=== PATIENT | male | born 1945 | race Caucasian/White ===

== ENCOUNTER 2017-12-01 20:07 | Emergency (ER) | payer OTHER, MEDICARE ==
[~2017-12-01] VITALS: Ht 172.7 cm; Wt 100.0 kg
[~2017-12-01 20:07] MED LIST: ALBU18HF2 INH; ATOR10TA70 PO; BECL7.3A INH; CYAN100082 PO; DABI150C PO; DOCU100C40 PO; FENO145T38 PO; FOLI-43 PO; FURO-150 PO; HYDR-3972 PO; MECL-111 PO; METO-539 PO; MULT-1179 PO; OMEG1CAP54 PO; ONDA4TAB6 PO; ONDA8TAB9 PO; PANT40TA39 PO; PHE25R PR; POTA10CA44 PO; PYRI50TA10 PO; ZOLP5TAB8 PO
[2017-12-01 20:54] LABS: BASOPHILS # (AUTO) 0.1 X10'3 (0-0.2); BASOPHILS % (AUTO) 0.7 % (0-1); EOSINOPHILS # (AUTO) 0.2 X10'3 (0-0.9); EOSINOPHILS % (AUTO) 2.2 % (0-6); HEMATOCRIT 49.1 % (42.0-52.0); HEMOGLOBIN 15.9 g/dl (14.0-17.9); LYMPHOCYTES # (AUTO) 1.7 X10'3 (1.1-4.8); MEAN CORPUSCULAR HEMOGLOBIN 27.1 PG (27.0-31.0); MEAN CORPUSCULAR HGB CONC 32.4 % (33.0-36.5); MEAN CORPUSCULAR VOLUME 83.6 FL (78-98); MEAN PLATELET VOLUME 8.8 FL (7.4-10.4); MONOCYTES % (AUTO) 10.7 % (2-12); NEUTROPHILS # (AUTO) 6.1 X10'3 (1.8-7.7); NEUTROPHILS % (AUTO) 67.4 % (42-75); PLATELET COUNT 158 X10'3 (140-440); RED BLOOD COUNT 5.87 X10'6 (4.70-6.10); RED CELL DISTRIBUTION WIDTH 17.6 % (11.5-14.5); WHITE BLOOD COUNT 9.1 X10'3 (4.5-11.0)
[2017-12-01 21:35] LABS: ALANINE AMINOTRANSFERASE 27 U/L (12-78); ALBUMIN 3.5 G/DL (3.4-5.0); ALBUMIN/GLOBULIN RATIO 0.9 (1.1-1.5); ALKALINE PHOSPHATASE 57 IU/L (46-116); ANION GAP 5 (8-16); ASPARTATE AMINO TRANSFERASE 26 U/L (10-37); BILIRUBIN,TOTAL 0.8 MG/DL (0.1-1.0); BLOOD UREA NITROGEN 24 MG/DL (7-18); BUN/CREATININE RATIO 17.1 (5.4-32.0); CALCIUM 9.1 MG/DL (8.5-10.1); CHLORIDE 97 MMOL/L (99-107); GLUCOSE 87 MG/DL (70-104); POTASSIUM 4.1 MMOL/L (3.5-5.1); SODIUM 138 MMOL/L (135-145); TOTAL CARBON DIOXIDE 36.5 MMOL/L (24-32); TOTAL PROTEIN 7.5 G/DL (6.4-8.2); eGFR 50 ML/MIN
[2017-12-01 21:43] LABS: LIPASE 273 U/L (73-393); MAGNESIUM 2.2 MG/DL (1.5-2.4); PHOSPHORUS 2.5 MG/DL (2.3-4.5)
[2017-12-02] VITALS: BP 144/87
== END 2017-12-02 00:08 | disposition home or self-care (01) ==
LOC: ER 20:07
DX: R42 Dizziness and giddiness (principal); I48.91 Unspecified atrial fibrillation; I25.10 Atherosclerotic heart disease of native coronary artery without angina pectoris; I10 Essential (primary) hypertension; J44.9 Chronic obstructive pulmonary disease, unspecified; G89.29 Other chronic pain; Z86.73 Personal history of transient ischemic attack (TIA), and cerebral infarction without residual deficits; Z95.5 Presence of coronary angioplasty implant and graft; Z95.1 Presence of aortocoronary bypass graft; Z98.890 Other specified postprocedural states; Z87.442 Personal history of urinary calculi; Z88.1 Allergy status to other antibiotic agents; Z79.899 Other long term (current) drug therapy
CPT/HCPCS: 36415; 71045; 71250; 80053; 83690; 83735; 83880; 84100; 84145; 84443; 84484; 85025; 87070; 87502; 87503; 99285; J7030

== ENCOUNTER 2018-07-14 10:00 | Outpatient (CLI) | payer OTHER, MEDICARE ==
[~2018-07-14] VITALS: Ht 175.3 cm; Wt 104.8 kg
[2018-07-14] MEDS ORDERED: albuterol 2.5 MG/3 ML nebule NEB PRN (10:45)
== END 2018-07-14 23:59 | disposition home or self-care (01) ==
LOC: RT 10:00
PROVIDERS: ATTEND Internal Medicine Critical Care Medicine
DX: J44.9 Chronic obstructive pulmonary disease, unspecified (principal); I10 Essential (primary) hypertension; F10.10 Alcohol abuse, uncomplicated; Z79.899 Other long term (current) drug therapy; Z87.891 Personal history of nicotine dependence; Z95.2 Presence of prosthetic heart valve
CPT/HCPCS: 94060; 94727; 94729

== ENCOUNTER → 2018-08-14 | Emergency (ER) | payer OTHER, MEDICARE ==
[~2018-08-14] VITALS: Ht 175.3 cm; Wt 109.0 kg
[~2018-08-14] MED LIST changes: +HYDROmorphone 1 mg/ml syringe IV PRN; +HYDROmorphone inj. 0.5 MG/0.5 ML DISP.SYRIN IV PRN; +LORazepam 2 mg/ml vial IV ONE; +ONDA4TAB12 PO; +OXYC-134 PO; +ketorolac trometh. 30mg/ml inj. IV ONE; +normal saline 1000ML IV soln IVB ONE
[2018-08-14 14:30] VITALS: BP 148/84
== END | disposition home or self-care (01) ==
LOC: ER 13:20
DX: G89.29 Other chronic pain (principal); M54.5 Low back pain; M54.6 Pain in thoracic spine; R07.89 Other chest pain; I10 Essential (primary) hypertension; I25.10 Atherosclerotic heart disease of native coronary artery without angina pectoris; J44.9 Chronic obstructive pulmonary disease, unspecified; Z86.73 Personal history of transient ischemic attack (TIA), and cerebral infarction without residual deficits; Z87.442 Personal history of urinary calculi; Z88.8 Allergy status to other drugs, medicaments and biological substances
CPT/HCPCS: 96374; 99284; J1170; J1885; J2060; J7030

== ENCOUNTER 2018-09-13 10:06 | Outpatient (CLI) | payer OTHER, MEDICARE ==
[~2018-09-13 10:06] MED LIST changes: -HYDROmorphone 1 mg/ml syringe IV PRN; -HYDROmorphone inj. 0.5 MG/0.5 ML DISP.SYRIN IV PRN; -LORazepam 2 mg/ml vial IV ONE; -ketorolac trometh. 30mg/ml inj. IV ONE; -normal saline 1000ML IV soln IVB ONE
== END 2018-09-13 23:59 | disposition home or self-care (01) ==
LOC: 64 CT 10:06
PROVIDERS: ATTEND Physician Assistant Surgical
DX: M48.061 Spinal stenosis, lumbar region without neurogenic claudication (principal); M47.896 Other spondylosis, lumbar region; I10 Essential (primary) hypertension; J44.9 Chronic obstructive pulmonary disease, unspecified; Z87.891 Personal history of nicotine dependence
CPT/HCPCS: 72131

== ENCOUNTER 2018-11-26 10:47 | Emergency (ER) | payer OTHER, MEDICARE ==
[~2018-11-26] VITALS: Ht 175.3 cm; Wt 106.0 kg
[2018-11-26 10:49] VITALS: BP 122/79
[2018-11-26] MEDS ORDERED: SULF1TAB49 PO (10:55)
[2018-11-26] MEDS ORDERED: CEPH-572 PO (10:55)
== END 2018-11-26 11:01 | disposition home or self-care (01) ==
LOC: ER 10:48
DX: L03.114 Cellulitis of left upper limb (principal); I10 Essential (primary) hypertension; G89.29 Other chronic pain; J44.9 Chronic obstructive pulmonary disease, unspecified; I48.91 Unspecified atrial fibrillation; I25.10 Atherosclerotic heart disease of native coronary artery without angina pectoris; Z98.62 Peripheral vascular angioplasty status; Z86.73 Personal history of transient ischemic attack (TIA), and cerebral infarction without residual deficits; Z88.8 Allergy status to other drugs, medicaments and biological substances; Z79.899 Other long term (current) drug therapy
CPT/HCPCS: 99283

== ENCOUNTER 2019-04-06 10:13 | Outpatient (CLI) | payer OTHER, MEDICARE ==
[~2019-04-06] VITALS: Ht 175.3 cm; Wt 104.8 kg
[~2019-04-06 10:13] MED LIST changes: -PYRI50TA10 PO; +PYRI50TA13 PO
[2019-04-06] MEDS ORDERED: albuterol 2.5 MG/3 ML nebule NEB ONE (10:55)
== END 2019-04-06 23:59 | disposition home or self-care (01) ==
LOC: RT 10:13
PROVIDERS: ATTEND Internal Medicine Critical Care Medicine
DX: J44.9 Chronic obstructive pulmonary disease, unspecified (principal); F17.210 Nicotine dependence, cigarettes, uncomplicated
CPT/HCPCS: 94060; 94727; 94729; 94760

== ENCOUNTER 2019-06-09 08:15 | Outpatient (CLI) | payer OTHER, MEDICARE ==
[2019-06-09] VITALS (16 sets, daily range): BP systolic 88–127; BP diastolic 46–73
[~2019-06-09] VITALS: Ht 175.3 cm; Wt 104.5 kg
[2019-06-09] MEDS ORDERED: nitroGLYCERIN 0.4mg SUBLingual tab SL PRN (08:55)
[2019-06-09] MEDS ORDERED: regadenoson 0.4mg/5ml syringe IV PRN (08:55)
[2019-06-09] MEDS ORDERED: aminophylline 250mg/10ml inj. IV PRN (08:55)
[2019-06-09] MEDS ORDERED: regadenoson 0.4mg/5ml syringe IV ONE (10:19)
[2019-06-09] MEDS ORDERED: aminophylline inj. 10 ML IV ONE (10:19)
== END 2019-06-09 23:59 | disposition home or self-care (01) ==
LOC: RAD 08:15
PROVIDERS: ATTEND Internal Medicine Interventional Cardiology
DX: I08.8 Other rheumatic multiple valve diseases (principal); I65.23 Occlusion and stenosis of bilateral carotid arteries; I25.810 Atherosclerosis of coronary artery bypass graft(s) without angina pectoris; I48.2 Chronic atrial fibrillation; I25.5 Ischemic cardiomyopathy; E78.5 Hyperlipidemia, unspecified; I70.1 Atherosclerosis of renal artery; I12.9 Hypertensive chronic kidney disease with stage 1 through stage 4 chronic kidney disease, or unspecified chronic kidney disease; N18.3 Chronic kidney disease, stage 3 (moderate); J44.9 Chronic obstructive pulmonary disease, unspecified; G47.33 Obstructive sleep apnea (adult) (pediatric); Z95.5 Presence of coronary angioplasty implant and graft; Z95.0 Presence of cardiac pacemaker; Z79.899 Other long term (current) drug therapy; Z86.73 Personal history of transient ischemic attack (TIA), and cerebral infarction without residual deficits
CPT/HCPCS: 78452; 93017; 93306; 93880; A9500; J0280; J2785

== ENCOUNTER 2020-07-20 15:27 | Emergency (ER) | payer BC, MEDICARE ==
[~2020-07-20] VITALS: Ht 177.8 cm; Wt 95.5 kg
[~2020-07-20 15:27] MED LIST changes: -MECL-111 PO; +MECL-159 PO
[2020-07-20 16:35] LABS: HEMOGLOBIN 8.6 g/dl (14.0-17.9); MEAN CORPUSCULAR VOLUME 83.2 FL (78-98); WHITE BLOOD COUNT 5.3 X10'3 (4.5-11.0)
[2020-07-20 16:37] LABS: HEMATOCRIT 26.1 % (42.0-52.0); MEAN CORPUSCULAR HEMOGLOBIN 27.4 PG (27.0-31.0); MEAN PLATELET VOLUME 10.9 FL (7.4-10.4); RED BLOOD COUNT 3.13 X10'6 (4.70-6.10); RED CELL DISTRIBUTION WIDTH 28.4 % (11.5-14.5)
[2020-07-20 16:48] LABS: PARTIAL THROMBOPLASTIN TIME 39 SECONDS (22-32)
[2020-07-20 16:49] LABS: PLATELET COUNT 23 X10'3 (140-440)
[2020-07-20 16:50] LABS: ALANINE AMINOTRANSFERASE 14 U/L (12-78); ALBUMIN/GLOBULIN RATIO 1.2 (1.1-1.5); ALKALINE PHOSPHATASE 63 IU/L (46-116); ANION GAP 9 (8-16); ASPARTATE AMINO TRANSFERASE 16 U/L (10-37); BILIRUBIN,TOTAL 1.2 MG/DL (0.1-1.0); BLOOD UREA NITROGEN 28 MG/DL (7-18); BUN/CREATININE RATIO 13.7 (5.4-32.0); CALCIUM 8.6 MG/DL (8.5-10.1); CHLORIDE 99 MMOL/L (99-107); CREATININE 2.05 MG/DL (0.60-1.10); GLUCOSE 139 MG/DL (70-104); POTASSIUM 4.2 MMOL/L (3.5-5.1); SODIUM 137 MMOL/L (135-145); TOTAL CARBON DIOXIDE 28.6 MMOL/L (24-32); TOTAL PROTEIN 7.4 G/DL (6.4-8.2); eGFR 32 ML/MIN
[2020-07-20 16:54] LABS: ANISOCYTOSIS 3+; NUCLEATED RED BLOOD CELLS 2 /100WBC (0-0); PLATELET ESTIMATE DECREASED; TOTAL CELLS COUNTED 100
[2020-07-20 16:55] LABS: LARGE PLATELETS FEW; POLYCHROMASIA 1+
[2020-07-20 16:56] LABS: ACANTHOCYTES 2+; ELLIPTOCYTES 1+; SCHISTOCYTES 1+
[2020-07-20 17:31] LABS: C-REACTIVE PROTEIN 1.82 MG/DL (0.0-0.5); LACTATE DEHYDROGENASE 453 U/L (85-227)
[2020-07-20 18:30] LABS: CLARITY,URINE CLEAR (Clear); COLOR,URINE YELLOW (Yellow); GLUCOSE, URINE NEGATIVE (Neg); KETONES,URINE NEGATIVE (Neg); LEUKOCYTE ESTERASE ,URINE NEGATIVE (Neg); NITRITES, URINE NEGATIVE (Neg); OCCULT BLOOD,URINE NEGATIVE (Neg); PROTEIN,URINE NEGATIVE (Neg); UROBILINOGEN,URINE 0.2 E.U/dL (0.2-1.0)
[2020-07-20 18:37] LABS: UA COLLECTION TYPE URINAL
[2020-07-20 20:23] VITALS: BP 110/58
== END 2020-07-20 22:53 | disposition home or self-care (01) ==
LOC: ER 15:27
DX: D69.6 Thrombocytopenia, unspecified (principal); I48.91 Unspecified atrial fibrillation; I25.10 Atherosclerotic heart disease of native coronary artery without angina pectoris; I10 Essential (primary) hypertension; J44.9 Chronic obstructive pulmonary disease, unspecified; G89.29 Other chronic pain; Z86.73 Personal history of transient ischemic attack (TIA), and cerebral infarction without residual deficits; Z87.442 Personal history of urinary calculi; Z98.890 Other specified postprocedural states; Z95.0 Presence of cardiac pacemaker; Z88.8 Allergy status to other drugs, medicaments and biological substances; Z79.899 Other long term (current) drug therapy
CPT/HCPCS: 36415; 80053; 81003; 83615; 85007; 85025; 85384; 85610; 85651; 85730; 86140; 99283

== ENCOUNTER 2020-08-01 08:32 | Outpatient (CLI) | payer BC, MEDICARE | END 2020-08-01 23:59 | disposition home or self-care (01) | LOC: RAD 08:32 | PROVIDERS: ATTEND Internal Medicine Hematology & Oncology | DX: R16.0 Hepatomegaly, not elsewhere classified (principal); K80.80 Other cholelithiasis without obstruction | CPT/HCPCS: 76700 ==

== ENCOUNTER 2020-08-15 12:03 | Emergency (ER) | payer BC, MEDICARE ==
[~2020-08-15] VITALS: Ht 175.3 cm; Wt 91.8 kg
[2020-08-15] MEDS ORDERED: normal saline 1000ML IV soln IVB ONE (12:20)
[2020-08-15] MEDS ORDERED: HYDROmorphone inj. 0.5 MG/0.5 ML DISP.SYRIN IV ONE (12:20)
[2020-08-15] MEDS ORDERED: ondansetron/PF 4mg/2ml inj IV ONE (12:20)
[2020-08-15 12:37] LABS: HEMOGLOBIN 8.1 g/dl (14.0-17.9); MEAN PLATELET VOLUME 10.9 FL (7.4-10.4); RED BLOOD COUNT 2.97 X10'6 (4.70-6.10); WHITE BLOOD COUNT 4.1 X10'3 (4.5-11.0)
[2020-08-15 12:38] LABS: HEMATOCRIT 24.3 % (42.0-52.0); MEAN CORPUSCULAR HEMOGLOBIN 27.1 PG (27.0-31.0); MEAN CORPUSCULAR HGB CONC 33.2 g/dL (33.0-36.5); MEAN CORPUSCULAR VOLUME 81.8 FL (78-98); RED CELL DISTRIBUTION WIDTH 29.7 % (11.5-14.5)
[2020-08-15 12:51] LABS: ALANINE AMINOTRANSFERASE 14 U/L (12-78); ALBUMIN/GLOBULIN RATIO 1.2 (1.1-1.5); ALKALINE PHOSPHATASE 43 IU/L (46-116); ANION GAP 8 (8-16); ASPARTATE AMINO TRANSFERASE 22 U/L (10-37); BILIRUBIN,TOTAL 1.4 MG/DL (0.1-1.0); BLOOD UREA NITROGEN 44 MG/DL (7-18); BUN/CREATININE RATIO 18.8 (5.4-32.0); CALCIUM 8.8 MG/DL (8.5-10.1); CHLORIDE 97 MMOL/L (99-107); CREATININE 2.34 MG/DL (0.60-1.10); GLUCOSE 116 MG/DL (70-104); SODIUM 133 MMOL/L (135-145); TOTAL PROTEIN 7.4 G/DL (6.4-8.2); eGFR 27 ML/MIN
[2020-08-15 13:03] LABS: PLATELET COUNT 42 X10'3 (140-440)
[2020-08-15 13:14] LABS: NUCLEATED RED BLOOD CELLS 5 /100WBC (0-0); TOTAL CELLS COUNTED 100
[2020-08-15 13:15] LABS: ANISOCYTOSIS 3+; PLATELET ESTIMATE DECREASED
[2020-08-15 13:16] LABS: ACANTHOCYTES FEW; ELLIPTOCYTES 1+; LARGE PLATELETS FEW; POLYCHROMASIA 1+; SCHISTOCYTES 1+
[2020-08-15] MEDS ORDERED: oxyCODONE/APAP 10/325mg tablet PO ONE (14:35)
[2020-08-15 14:49] VITALS: BP 110/52
== END 2020-08-15 14:52 | disposition home or self-care (01) ==
LOC: ER 12:04
DX: G89.18 Other acute postprocedural pain (principal); D69.6 Thrombocytopenia, unspecified; E86.0 Dehydration; R06.02 Shortness of breath; G89.29 Other chronic pain; I48.91 Unspecified atrial fibrillation; I25.10 Atherosclerotic heart disease of native coronary artery without angina pectoris; I12.9 Hypertensive chronic kidney disease with stage 1 through stage 4 chronic kidney disease, or unspecified chronic kidney disease; N18.3 Chronic kidney disease, stage 3 (moderate); J44.9 Chronic obstructive pulmonary disease, unspecified; Z87.442 Personal history of urinary calculi; Z98.890 Other specified postprocedural states; Z98.61 Coronary angioplasty status; Z95.0 Presence of cardiac pacemaker; Z95.1 Presence of aortocoronary bypass graft; Z86.73 Personal history of transient ischemic attack (TIA), and cerebral infarction without residual deficits; Z88.8 Allergy status to other drugs, medicaments and biological substances; Z79.899 Other long term (current) drug therapy
CPT/HCPCS: 36415; 71250; 74176; 80053; 85007; 85025; 85651; 96361; 96374; 96375; 99284; J1170; J2405; J7030

== ENCOUNTER → 2020-08-24 | Outpatient (CLI) | payer BC, MEDICARE | END | disposition home or self-care (01) | LOC: CARD DIAG 09:38 | PROVIDERS: ATTEND Internal Medicine Interventional Cardiology | DX: I08.3 Combined rheumatic disorders of mitral, aortic and tricuspid valves (principal); E78.5 Hyperlipidemia, unspecified | CPT/HCPCS: 93306 ==

== ENCOUNTER 2020-09-06 10:03 | Day surgery (SDC) | payer BC, MEDICARE ==
[2020-09-06] VITALS (19 sets, daily range): BP systolic 11–123; BP diastolic 47–75
[~2020-09-06 10:03] MED LIST changes: +Allopurinol; -DABI150C PO; -DOCU100C40 PO; -FOLI-43 PO; +FOLI0.4T2 PO; -HYDR-3972 PO; +LISI1TAB32 PO; -MECL-159 PO; -MULT-1179 PO; -OMEG1CAP54 PO; -ONDA4TAB12 PO; -ONDA4TAB6 PO; -ONDA8TAB9 PO; -OXYC-134 PO; -PHE25R PR
[2020-09-06] MEDS ORDERED: acetaminophen 325mg tablet PO ONE (10:30)
[2020-09-06] MEDS ORDERED: diphenhydrAMINE 25mg capsule PO ONE (10:30)
[2020-09-06] MEDS ORDERED: dexamethasone sod phosphate 4mg/ml inj. IV ONE (10:40)
[2020-09-06] MEDS ORDERED: normal saline 1000ml 1,000 ML IV SCH (10:45)
[2020-09-07] MEDS ORDERED: dexamethasone sod phosphate 4mg/ml inj. IV SCH (08:00)
== END 2020-09-06 17:55 | disposition home or self-care (01) ==
LOC: SSTAY O 10:03
PROVIDERS: ATTEND Internal Medicine Hematology & Oncology
DX: D64.9 Anemia, unspecified (principal); D64.2 Secondary sideroblastic anemia due to drugs and toxins
CPT/HCPCS: 36415; 36430; 86885; 86900; 86901; 86920; J1100; J7030; P9016; Q0163

== ENCOUNTER 2020-09-17 10:50 | Inpatient (IN) | payer BC, MEDICARE ==
[~2020-09-17] VITALS: Ht 175.3 cm; Wt 89.5 kg
[~2020-09-17 10:50] MED LIST changes: -METO-539 PO
--- NOTE | 2020-09-17 11:01 | NUR ---
Dr. Dow called to bedside on patient's arrival and is updated on patient's situation.
[2020-09-17 11:59] LABS: D-DIMER 0.45 MG/L FEU (0-0.50); PARTIAL THROMBOPLASTIN TIME 31 SECONDS (22-32)
[2020-09-17 12:13] LABS: CLARITY,URINE CLEAR (Clear); GLUCOSE, URINE NEGATIVE (Neg); KETONES,URINE NEGATIVE (Neg); LEUKOCYTE ESTERASE ,URINE NEGATIVE (Neg); NITRITES, URINE NEGATIVE (Neg); OCCULT BLOOD,URINE NEGATIVE (Neg); PROTEIN,URINE NEGATIVE (Neg)
[2020-09-17 12:16] LABS: COLOR,URINE DARK YELLOW (Yellow); UA COLLECTION TYPE VOIDED
[2020-09-17 12:17] LABS: ALANINE AMINOTRANSFERASE 14 U/L (12-78); ALBUMIN 3.2 G/DL (3.4-5.0); ALBUMIN/GLOBULIN RATIO 1.1 (1.1-1.5); ALKALINE PHOSPHATASE 46 IU/L (46-116); ANION GAP 4 (8-16); ASPARTATE AMINO TRANSFERASE 17 U/L (10-37); BILIRUBIN,TOTAL 1.4 MG/DL (0.1-1.0); BLOOD UREA NITROGEN 34 MG/DL (7-18); BUN/CREATININE RATIO 25.8 (5.4-32.0); C-REACTIVE PROTEIN 7.14 MG/DL (0.0-0.5); CALCIUM 8.3 MG/DL (8.5-10.1); CHLORIDE 98 MMOL/L (99-107); CREATININE 1.32 MG/DL (0.60-1.10); GLUCOSE 112 MG/DL (70-104); POTASSIUM 4.2 MMOL/L (3.5-5.1); SODIUM 134 MMOL/L (135-145); TOTAL CARBON DIOXIDE 31.9 MMOL/L (24-32); TOTAL PROTEIN 6.1 G/DL (6.4-8.2); eGFR 53 ML/MIN
--- NOTE | 2020-09-17 12:33 | NUR ---
Patient is resting comfortably with his Hailee at bedside.
[2020-09-17 12:40] LABS: BASOPHILS % (AUTO) 0 % (0-1); HEMOGLOBIN 8.4 g/dl (14.0-17.9); MONOCYTES # (AUTO) 0.2 X10'3 (0-0.9); NEUTROPHILS # (AUTO) 12.6 X10'3 (1.8-7.7)
[2020-09-17 12:42] LABS: EOSINOPHILS % (AUTO) 0.1 % (0-6); HEMATOCRIT 25.8 % (42.0-52.0); LYMPHOCYTES # (AUTO) 0.6 X10'3 (1.1-4.8); LYMPHOCYTES % (AUTO) 4.3 % (21-51); MEAN CORPUSCULAR HEMOGLOBIN 27.8 PG (27.0-31.0); MEAN CORPUSCULAR HGB CONC 32.5 g/dL (33.0-36.5); MEAN CORPUSCULAR VOLUME 85.5 FL (78-98); MEAN PLATELET VOLUME 8.2 FL (7.4-10.4); MONOCYTES % (AUTO) 1.5 % (2-12); NEUTROPHILS % (AUTO) 94.1 % (42-75); RED BLOOD COUNT 3.01 X10'6 (4.70-6.10); RED CELL DISTRIBUTION WIDTH 22.8 % (11.5-14.5); WHITE BLOOD COUNT 13.4 X10'3 (4.5-11.0)
--- NOTE | 2020-09-17 13:10 | NUR ---
MRI screening form completed and faxed.
[2020-09-17 13:42] LABS: PLATELET COUNT 50 X10'3 (140-440)
[2020-09-17 14:03] LABS: NUCLEATED RED BLOOD CELLS 1 /100WBC (0-0); TOTAL CELLS COUNTED 100
[2020-09-17 14:05] LABS: ANISOCYTOSIS 3+; PLATELET ESTIMATE DECREASED
[2020-09-17 14:06] LABS: POIKILOCYTOSIS 2+
[2020-09-17 14:07] LABS: HYPOCHROMASIA 1+
[2020-09-17 14:10] LABS: ACANTHOCYTES 1+; BURR CELLS FEW; SCHISTOCYTES 3+; SPHEROCYTES 1+
[2020-09-17 14:11] LABS: ELLIPTOCYTES FEW; TEAR DROP CELLS FEW
[2020-09-17 14:12] LABS: HYPOGRANULAR PLATELETS FEW
[2020-09-17] MEDS ORDERED: iohexol 350MG/ML 100ml bottle IV ONE (14:23)
[2020-09-17] MEDS ORDERED: acetaminophen 325mg tablet PO PRN ×2 (14:45)
[2020-09-17] MEDS ORDERED: aspirin 325mg tablet PO ONE (14:45)
[2020-09-17] MEDS ORDERED: magnesium hydroxide 30ml (MOM) UD suspension PO PRN (14:45)
[2020-09-17] MEDS ORDERED: ondansetron/PF 4mg/2ml inj IV PRN (14:45)
[2020-09-17] MEDS ORDERED: mag hydrox/Alum hydrox/simeth 30ml oral suspension PO PRN (14:45)
[2020-09-17] MEDS ORDERED: morphine 2 MG/ML inj. syringe IV PRN ×2 (14:45)
[2020-09-17] MEDS ORDERED: HYDROcodone/acetaminophen 5mg/325mg tablet PO PRN (14:45)
[2020-09-17] MEDS ORDERED: aspirin 81mg tab.chew PO ONE (14:46)
[2020-09-17 15:05] LABS: HEMOGLOBIN A1C 6.1 % (4.5-6.2)
[2020-09-17 15:10] LABS: CHOL/HDL RATIO 3.2 (0.00-4.99); CHOLESTEROL 71 MG/DL (0-200); HDL CHOLESTEROL 22 MG/DL (35-60); LDL CHOLESTEROL 40 MG/DL (50-100); TRIGLYCERIDES 92 MG/DL (20-135)
--- NOTE | 2020-09-17 15:10 | NUR ---
Patient is resting comfortably in bed at this time.
[2020-09-17] MEDS ORDERED: ALLO100T PO (15:52)
--- NOTE | 2020-09-17 15:53 | NUR ---
Home medication list reviewed with the patient's Hailee.
--- NOTE | 2020-09-17 18:41 | NUR ---
Problems reprioritized. Patient report given, questions answered & plan of care reviewed with VERNON Borrego.
[2020-09-17 19:30] VITALS: BP 119/48
[2020-09-17] MEDS: potassium chloride 10mEq ER tablet PO SCH (20:35)
[2020-09-17] MEDS: furosemide 20MG tablet PO SCH (20:35)
[2020-09-17] MEDS ORDERED: fenofibrate 145mg tablet PO SCH (21:00)
[2020-09-17 22:00] VITALS: BP 93/38
[2020-09-18 02:00] VITALS: BP 104/53
--- NOTE | 2020-09-18 05:58 | NUR ---
Report given to bhavesh Moon.
[2020-09-18 06:00] VITALS: BP 102/39
[2020-09-18 06:19] LABS: BASOPHILS % (AUTO) 0 % (0-1); EOSINOPHILS % (AUTO) 0.2 % (0-6); MONOCYTES # (AUTO) 0.1 X10'3 (0-0.9)
[2020-09-18 06:23] LABS: HEMATOCRIT 24.1 % (42.0-52.0); LYMPHOCYTES # (AUTO) 0.5 X10'3 (1.1-4.8); LYMPHOCYTES % (AUTO) 4.9 % (21-51); MEAN CORPUSCULAR HEMOGLOBIN 28.6 PG (27.0-31.0); MEAN CORPUSCULAR HGB CONC 33.4 g/dL (33.0-36.5); MEAN CORPUSCULAR VOLUME 85.5 FL (78-98); MEAN PLATELET VOLUME 8.5 FL (7.4-10.4); MONOCYTES % (AUTO) 1.4 % (2-12); NEUTROPHILS # (AUTO) 8.7 X10'3 (1.8-7.7); NEUTROPHILS % (AUTO) 93.5 % (42-75); RED BLOOD COUNT 2.81 X10'6 (4.70-6.10); RED CELL DISTRIBUTION WIDTH 23.4 % (11.5-14.5); WHITE BLOOD COUNT 9.3 X10'3 (4.5-11.0)
[2020-09-18 06:40] LABS: ALBUMIN 3.1 G/DL (3.4-5.0); ANION GAP 5 (8-16); BLOOD UREA NITROGEN 30 MG/DL (7-18); BUN/CREATININE RATIO 21.6 (5.4-32.0); CALCIUM 8.1 MG/DL (8.5-10.1); CHLORIDE 104 MMOL/L (99-107); CHOL/HDL RATIO 3.3 (0.00-4.99); CHOLESTEROL 65 MG/DL (0-200); CREATININE 1.39 MG/DL (0.60-1.10); GLUCOSE 100 MG/DL (70-104); HDL CHOLESTEROL 20 MG/DL (35-60); LDL CHOLESTEROL 38 MG/DL (50-100); POTASSIUM 4.2 MMOL/L (3.5-5.1); SODIUM 140 MMOL/L (135-145); TOTAL CARBON DIOXIDE 30.6 MMOL/L (24-32); TRIGLYCERIDES 82 MG/DL (20-135); eGFR 50 ML/MIN
--- NOTE | 2020-09-18 06:43 | NUR ---
Patient in room ORTHO 4007. I have received report from VERNON Borrego and had the opportunity to ask questions and assume patient care.
[2020-09-18 07:33] LABS: PLATELET COUNT 33 X10'3 (140-440)
[2020-09-18 07:42] LABS: ANISOCYTOSIS 3+; PLATELET ESTIMATE DECREASED; TOTAL CELLS COUNTED 100
[2020-09-18 07:43] LABS: ACANTHOCYTES 1+; HYPOCHROMASIA 1+; POIKILOCYTOSIS 3+; SCHISTOCYTES 3+
[2020-09-18 07:44] LABS: ELLIPTOCYTES FEW; SPHEROCYTES 1+; TEAR DROP CELLS FEW
[2020-09-18 07:45] LABS: BURR CELLS FEW
--- NOTE | 2020-09-18 07:45 | NUR ---
Page Sent PAGER ID: [phone] MESSAGE: PAULA [id number]-RE: [id number] GENESIS LOPEZ...CRITICAL LAB...PLT 33
[2020-09-18] MEDS ORDERED: pantoprazole 40mg Tablet.DR PO SCH (08:00)
[2020-09-18] MEDS: potassium chloride 10mEq ER tablet PO SCH (08:00)
[2020-09-18] MEDS ORDERED: aspirin 81mg tablet.DR PO SCH (08:00)
[2020-09-18] MEDS ORDERED: allopurinol 100mg tablet PO SCH (08:00)
[2020-09-18] MEDS: furosemide 20MG tablet PO SCH (08:00)
[2020-09-18] MEDS ORDERED: ASPI-1071 PO (08:44)
[2020-09-18 09:30] VITALS: BP 112/50
--- NOTE | 2020-09-18 10:20 | NUR ---
DC INSTRUCTIONS GIVEN, QUESTIONS ANSWERED. IV REMOVED, CANULA INTACT, NO COMPLICATIONS. TELE MONITOR REMOVED. PT DRESSED SELF AND WAS WHEELED DOWN TO PRIVATE VEHICLE IN STABLE CONDITION
== END 2020-09-18 09:45 | disposition home or self-care (01) | DRG 948 ==
LOC: ER 10:50 → EEVIPCON 14:43 → ED HOLD 14:43 → ORTHO 4S 17:50
PROVIDERS: ADMIT Internal Medicine; ATTEND Internal Medicine
PROC: B3251ZZ Computerized Tomography (CT Scan) of Bilateral Common Carotid Arteries using Low Osmolar Contrast (ICD-10-PCS; principal; 2020-09-17)
DX: R53.1 Weakness (principal); N17.9 Acute kidney failure, unspecified; D46.9 Myelodysplastic syndrome, unspecified; D69.59 Other secondary thrombocytopenia; K80.20 Calculus of gallbladder without cholecystitis without obstruction; J44.9 Chronic obstructive pulmonary disease, unspecified; M25.78 Osteophyte, vertebrae; E78.5 Hyperlipidemia, unspecified; I25.10 Atherosclerotic heart disease of native coronary artery without angina pectoris; I49.5 Sick sinus syndrome; I48.91 Unspecified atrial fibrillation; Z95.1 Presence of aortocoronary bypass graft; Z87.891 Personal history of nicotine dependence; Z79.82 Long term (current) use of aspirin; Z79.899 Other long term (current) drug therapy; Z82.49 Family history of ischemic heart disease and other diseases of the circulatory system
CPT/HCPCS: 36415; 70450; 70496; 70498; 71045; 72131; 80048; 80053; 80061; 81003; 83036; 83605; 83880; 84145; 84550; 85007; 85025; 85379; 85610; 85651; 85730; 86140; 87040; 92508; 92616; 93005; 93308; 97162; 97530; 99285; G0378; Q9967

== ENCOUNTER 2020-09-26 12:46 | Inpatient (IN) | payer BC, MEDICARE ==
[~2020-09-26] VITALS: Ht 175.3 cm; Wt 93.0 kg
[2020-09-26] VITALS (14 sets, daily range): BP systolic 73–117; BP diastolic 33–63
[~2020-09-26 12:46] MED LIST changes: -ALBU18HF2 INH; +ALLO100T PO; +ASPI-1071 PO; -ATOR10TA70 PO; -Allopurinol; -BECL7.3A INH; -CYAN100082 PO; -FOLI0.4T2 PO; -LISI1TAB32 PO; -PYRI50TA13 PO; -ZOLP5TAB8 PO
[2020-09-26] MEDS ORDERED: normal saline 1000ML IV soln IVB ONE (13:30)
[2020-09-26 14:05] LABS: RED BLOOD COUNT 1.66 X10'6 (4.70-6.10); WHITE BLOOD COUNT 1.3 X10'3 (4.5-11.0)
[2020-09-26 14:09] LABS: MEAN CORPUSCULAR HEMOGLOBIN 28.8 PG (27.0-31.0); MEAN CORPUSCULAR HGB CONC 34.4 g/dL (33.0-36.5); MEAN CORPUSCULAR VOLUME 83.7 FL (78-98); MEAN PLATELET VOLUME 11.1 FL (7.4-10.4); RED CELL DISTRIBUTION WIDTH 21.7 % (11.5-14.5)
[2020-09-26 14:11] LABS: HEMATOCRIT 13.9 % (42.0-52.0); HEMOGLOBIN 4.8 g/dl (14.0-17.9); PLATELET COUNT 14 X10'3 (140-440)
[2020-09-26 14:25] LABS: ALANINE AMINOTRANSFERASE 219 U/L (12-78); ALKALINE PHOSPHATASE 52 IU/L (46-116); ANION GAP 7 (8-16); ASPARTATE AMINO TRANSFERASE 144 U/L (10-37); BILIRUBIN,TOTAL 4.2 MG/DL (0.1-1.0); BLOOD UREA NITROGEN 36 MG/DL (7-18); CALCIUM 8.1 MG/DL (8.5-10.1); CHLORIDE 99 MMOL/L (99-107); CREATININE 1.89 MG/DL (0.60-1.10); GLUCOSE 121 MG/DL (70-104); POTASSIUM 4.4 MMOL/L (3.5-5.1); SODIUM 133 MMOL/L (135-145); TOTAL CARBON DIOXIDE 26.7 MMOL/L (24-32); eGFR 35 ML/MIN
[2020-09-26] MEDS ORDERED: normal saline 1000ML IV soln IV ONE (14:25)
[2020-09-26 14:27] LABS: ALBUMIN/GLOBULIN RATIO 0.9 (1.1-1.5); TOTAL PROTEIN 6.5 G/DL (6.4-8.2)
[2020-09-26] MEDS ORDERED: HYDROcodone/acetaminophen 5mg/325mg tablet PO PRN (14:30)
[2020-09-26] MEDS ORDERED: morphine 2 MG/ML inj. syringe IV PRN ×2 (14:30)
[2020-09-26] MEDS ORDERED: mag hydrox/Alum hydrox/simeth 30ml oral suspension PO PRN (14:30)
[2020-09-26] MEDS ORDERED: magnesium hydroxide 30ml (MOM) UD suspension PO PRN (14:30)
[2020-09-26] MEDS ORDERED: acetaminophen 325mg tablet PO PRN ×2 (14:30)
[2020-09-26 15:07] LABS: % IRON SATURATION 68 % (11-46); IRON 149 UG/DL (53-167); TOTAL IRON BINDING CAPACITY 220 UG/DL (259-388)
[2020-09-26 15:14] LABS: RED BLOOD COUNT 1.65 X10'6 (4.70-6.10); RETICULOCYTE % (AUTO) 1.7 % (0.5-1.5)
[2020-09-26 15:16] LABS: ANISOCYTOSIS 3+; PLATELET ESTIMATE DECREASED; TOTAL CELLS COUNTED 100
[2020-09-26 15:17] LABS: ACANTHOCYTES 1+; POIKILOCYTOSIS 2+; SCHISTOCYTES 2+; SPHEROCYTES 1+
[2020-09-26 15:18] LABS: ELLIPTOCYTES 1+
[2020-09-26 15:19] LABS: POLYCHROMASIA FEW
[2020-09-26] MEDS ORDERED: METO-395 PO (15:32)
[2020-09-26] MEDS ORDERED: PROC10TA10 PO (15:32)
[2020-09-26] MEDS ORDERED: LISI1TAB32 PO (15:32)
[2020-09-26] MEDS ORDERED: FURO20TA4 PO (15:32)
[2020-09-26] MEDS ORDERED: PANT40TA54 PO (15:32)
[2020-09-26] MEDS ORDERED: FENO145T25 PO (15:32)
[2020-09-26] MEDS ORDERED: NAPR-996 PO (15:32)
[2020-09-26] MEDS ORDERED: ATOR20TA66 PO (15:32)
[2020-09-26] MEDS ORDERED: ALLO300T8 PO (15:32)
[2020-09-26] MEDS ORDERED: ASPI-611 PO (15:32)
[2020-09-26] MEDS ORDERED: ALBU8.5H8 PO (15:32)
[2020-09-26 15:44] LABS: LACTATE DEHYDROGENASE 303 U/L (85-227)
[2020-09-26 15:45] LABS: FERRITIN 3192 NG/ML (26-388)
[2020-09-26] MEDS: ondansetron/PF 4mg/2ml inj IV PRN (18:20)
--- NOTE | 2020-09-26 18:59 | NUR ---
Patient in room ED 7. I have received report from VERNON Arthur and had the opportunity to ask questions and assume patient care.
[2020-09-26 19:15] LABS: CLARITY,URINE CLEAR (Clear); COLOR,URINE YELLOW (Yellow); GLUCOSE, URINE NEGATIVE (Neg); KETONES,URINE NEGATIVE (Neg); LEUKOCYTE ESTERASE ,URINE NEGATIVE (Neg); NITRITES, URINE NEGATIVE (Neg); OCCULT BLOOD,URINE NEGATIVE (Neg); PH,URINE 5.5 (4.8-8.0); PROTEIN,URINE NEGATIVE (Neg); UA COLLECTION TYPE URINAL; UROBILINOGEN,URINE >=8.0 E.U/dL (0.2-1.0)
--- NOTE | 2020-09-26 19:21 | NUR ---
patient arrived via gurney with RN tranposrting.
[2020-09-26 22:04] LABS: WHITE BLOOD COUNT 1.4 X10'3 (4.5-11.0)
[2020-09-26 22:06] LABS: MEAN CORPUSCULAR HEMOGLOBIN 29.4 PG (27.0-31.0); MEAN CORPUSCULAR HGB CONC 34.4 g/dL (33.0-36.5); MEAN CORPUSCULAR VOLUME 85.7 FL (78-98); MEAN PLATELET VOLUME 8.5 FL (7.4-10.4); RED BLOOD COUNT 2.11 X10'6 (4.70-6.10)
[2020-09-26 22:21] LABS: HEMATOCRIT 18.1 % (42.0-52.0); HEMOGLOBIN 6.2 g/dl (14.0-17.9)
[2020-09-26 22:22] LABS: PLATELET COUNT 25 X10'3 (140-440)
[2020-09-26 23:33] LABS: TOTAL CELLS COUNTED 100
[2020-09-26 23:34] LABS: ANISOCYTOSIS 3+; PLATELET ESTIMATE DECREASED; POIKILOCYTOSIS 2+
[2020-09-26 23:35] LABS: ACANTHOCYTES FEW; ELLIPTOCYTES 1+; SCHISTOCYTES 1+
[2020-09-26 23:36] LABS: POLYCHROMASIA FEW; SPHEROCYTES FEW
[2020-09-27] VITALS (12 sets, daily range): BP systolic 105–130; BP diastolic 41–67
[2020-09-27 03:38] LABS: ALBUMIN 2.8 G/DL (3.4-5.0); ANION GAP 10 (8-16); BLOOD UREA NITROGEN 32 MG/DL (7-18); BUN/CREATININE RATIO 21.9 (5.4-32.0); CALCIUM 7.9 MG/DL (8.5-10.1); CHLORIDE 103 MMOL/L (99-107); CREATININE 1.46 MG/DL (0.60-1.10); GLUCOSE 110 MG/DL (70-104); POTASSIUM 4.5 MMOL/L (3.5-5.1); SODIUM 137 MMOL/L (135-145); eGFR 47 ML/MIN
[2020-09-27 03:41] LABS: WHITE BLOOD COUNT 1.4 X10'3 (4.5-11.0)
[2020-09-27 03:43] LABS: MEAN CORPUSCULAR HEMOGLOBIN 30.2 PG (27.0-31.0); MEAN CORPUSCULAR HGB CONC 34.8 g/dL (33.0-36.5); MEAN CORPUSCULAR VOLUME 86.7 FL (78-98); MEAN PLATELET VOLUME 9.4 FL (7.4-10.4); RED BLOOD COUNT 2.32 X10'6 (4.70-6.10); RED CELL DISTRIBUTION WIDTH 17.3 % (11.5-14.5)
[2020-09-27 04:00] LABS: HEMATOCRIT 20.1 % (42.0-52.0); PLATELET COUNT 19 X10'3 (140-440)
--- NOTE | 2020-09-27 06:19 | NUR ---
Problems reprioritized. Patient report given, questions answered & plan of care reviewed with VERNON Bose.
--- NOTE | 2020-09-27 06:22 | NUR ---
Patient in room MED 314. I have received report from VERNON Rivas and had the opportunity to ask questions and assume patient care.
[2020-09-27 07:33] LABS: PLATELET ESTIMATE DECREASED; TOTAL CELLS COUNTED 100
[2020-09-27 07:34] LABS: ANISOCYTOSIS 1+; ELLIPTOCYTES 1+; SCHISTOCYTES FEW
[2020-09-27 07:36] LABS: ACANTHOCYTES FEW
[2020-09-27] MEDS ORDERED: proCHLORperazine 10mg tablet PO PRN (15:25)
--- NOTE | 2020-09-27 15:51 | NUR ---
Dr. Cortes aware patient's H/H is 7 and 20.1. No new orders from Dr. Cortes. She states she will "recheck labs again tomorrow."
--- NOTE | 2020-09-27 18:30 | NUR ---
Problems reprioritized. Patient report given, questions answered & plan of care reviewed with Mihaela JUNIOR.
--- NOTE | 2020-09-27 18:49 | NUR ---
Problems reprioritized. Patient report given, questions answered & plan of care reviewed with Jn Chairez.
--- NOTE | 2020-09-27 19:01 | NUR ---
Student documentation: I have reviewed and agree with all interventions, assessments performed and documented by SN Sandi. Student Medication Administration: For this medication-pass time frame, all medication were reviewed, dispensed, administered and documented per hospital policy by SN SANDI.
--- NOTE | 2020-09-27 19:39 | NUR ---
Patient had episode of incontinence. Patient wanted his underwear and pants thrown away. Patient given rand care, gown and linen change.
--- NOTE | 2020-09-27 20:30 | NUR ---
FFP administered at 2014. Prior VS T: 97.4 F, 70 HR, 18 RR, 122/53 BP. 15 mins at 2029 post admin VS: T 97.9 F, 70 HR, 15 RR, 128/58 BP. Pt with no complaint at this time. Will continue to monitor
[2020-09-27] MEDS: ondansetron/PF 4mg/2ml inj IV PRN (21:25)
--- NOTE | 2020-09-27 21:25 | NUR ---
FFP completed, VS 97.9 F, 70 HR, 18 RR, 123/48 BP. Pt with no complaint of transfusion reaction. Will continue to monitor throughout shift.
[2020-09-27] MEDS: furosemide 20MG tablet PO SCH (21:33)
[2020-09-28] VITALS (10 sets, daily range): BP systolic 85–133; BP diastolic 46–54
[2020-09-28 05:16] LABS: ALBUMIN 2.9 G/DL (3.4-5.0); ANION GAP 8 (8-16); BLOOD UREA NITROGEN 32 MG/DL (7-18); BUN/CREATININE RATIO 21.8 (5.4-32.0); CALCIUM 8.2 MG/DL (8.5-10.1); CHLORIDE 100 MMOL/L (99-107); CREATININE 1.47 MG/DL (0.60-1.10); GLUCOSE 108 MG/DL (70-104); POTASSIUM 4.3 MMOL/L (3.5-5.1); SODIUM 135 MMOL/L (135-145); TOTAL CARBON DIOXIDE 27.5 MMOL/L (24-32); eGFR 47 ML/MIN
[2020-09-28 05:20] LABS: RED BLOOD COUNT 2.12 X10'6 (4.70-6.10); RED CELL DISTRIBUTION WIDTH 18.2 % (11.5-14.5); WHITE BLOOD COUNT 1.6 X10'3 (4.5-11.0)
[2020-09-28 05:24] LABS: MEAN CORPUSCULAR HEMOGLOBIN 30.9 PG (27.0-31.0); MEAN CORPUSCULAR HGB CONC 35.4 g/dL (33.0-36.5); MEAN CORPUSCULAR VOLUME 87.4 FL (78-98); MEAN PLATELET VOLUME 8.8 FL (7.4-10.4)
[2020-09-28 05:57] LABS: HEMATOCRIT 18.5 % (42.0-52.0); HEMOGLOBIN 6.5 g/dl (14.0-17.9)
[2020-09-28 05:58] LABS: PLATELET COUNT 34 X10'3 (140-440)
--- NOTE | 2020-09-28 06:12 | NUR ---
Patient in room MED 314. I have received report from VERNON Chairez and had the opportunity to ask questions and assume patient care.
--- NOTE | 2020-09-28 06:19 | NUR ---
Problems reprioritized. Patient report given, questions answered & plan of care reviewed with VERNON Lawler.
[2020-09-28 07:29] LABS: ANISOCYTOSIS 2+; PLATELET ESTIMATE DECREASED; TOTAL CELLS COUNTED 100
[2020-09-28 07:30] LABS: ACANTHOCYTES FEW; ELLIPTOCYTES 1+; SCHISTOCYTES FEW
--- NOTE | 2020-09-28 07:44 | NUR ---
PAGER ID: [phone] MESSAGE: RM 314 Mirza Benz: H&H 6.5 & 18.5. Yesterday 7.0 & 18.5. PLT 34 up from 19. (Was passed on to Dr Vivas but I think he wanted to late daytime handle it). VERNON Lawler Ext [phone]
[2020-09-28] MEDS ORDERED: atorvastatin 20mg tablet PO SCH (08:00)
[2020-09-28] MEDS: aspirin 81mg tablet.DR PO SCH (08:00)
[2020-09-28] MEDS: metoprolol succinate 25mg (24-HOUR) SR. Tablet PO SCH (08:39)
[2020-09-28] MEDS: pantoprazole 40mg Tablet.DR PO SCH (08:39)
[2020-09-28] MEDS: furosemide 20MG tablet PO SCH ×2 (08:39→20:01)
[2020-09-28] MEDS: allopurinol 300 MG tablet PO SCH (08:39)
--- NOTE | 2020-09-28 11:11 | NUR ---
PAGER ID: [phone] MESSAGE: [phone]: JESSICA DIXON FOR DISCHARGE HOME, CASE MANAGEMENT WORKING ON PLACEMENT.
--- NOTE | 2020-09-28 12:10 | NUR ---
RECEIVED REPORT FROM SHAHAB JUNIOR. ASSUMED CARE
[2020-09-28 16:20] LABS: OCCULT BLOOD STOOL NEGATIVE (Neg)
--- NOTE | 2020-09-28 18:00 | NUR ---
PT REFUSES ORTHOSTATIC VITALS, STATES HE FEELS TOO WEAK.
--- NOTE | 2020-09-28 18:18 | NUR ---
Problems reprioritized. Patient report given, questions answered & plan of care reviewed with SHAHRZAD JUNIOR.
--- NOTE | 2020-09-28 18:50 | NUR ---
PAGED DR PETERS: PAGER ID: [phone] MESSAGE: Pt Benz in 314 with anemia and hemo of 6.5, occult stool neg, had question regarding transfusion orders. [id number] miki
[2020-09-28] MEDS: HYDROcodone/acetaminophen 10/325mg tab PO PRN (20:01)
[2020-09-28] MEDS: albuterol 2.5 MG/3 ML nebule NEB PRN (22:30)
[2020-09-29] VITALS (9 sets, daily range): BP systolic 98–130; BP diastolic 43–78
[2020-09-29] MEDS: HYDROcodone/acetaminophen 10/325mg tab PO PRN (00:14)
[2020-09-29 06:12] LABS: ALBUMIN 3.2 G/DL (3.4-5.0); ANION GAP 12 (8-16); BLOOD UREA NITROGEN 36 MG/DL (7-18); BUN/CREATININE RATIO 23.8 (5.4-32.0); CALCIUM 8.5 MG/DL (8.5-10.1); CHLORIDE 97 MMOL/L (99-107); CREATININE 1.51 MG/DL (0.60-1.10); GLUCOSE 129 MG/DL (70-104); POTASSIUM 4.6 MMOL/L (3.5-5.1); SODIUM 132 MMOL/L (135-145); eGFR 45 ML/MIN
[2020-09-29 06:15] LABS: HEMOGLOBIN 8.3 g/dl (14.0-17.9); MEAN CORPUSCULAR HEMOGLOBIN 30.6 PG (27.0-31.0)
[2020-09-29 06:20] LABS: HEMATOCRIT 24.1 % (42.0-52.0); MEAN CORPUSCULAR HGB CONC 34.5 g/dL (33.0-36.5); MEAN CORPUSCULAR VOLUME 88.9 FL (78-98); MEAN PLATELET VOLUME 9.7 FL (7.4-10.4); RED BLOOD COUNT 2.71 X10'6 (4.70-6.10); RED CELL DISTRIBUTION WIDTH 17.7 % (11.5-14.5)
[2020-09-29 06:31] LABS: PLATELET COUNT 33 X10'3 (140-440)
--- NOTE | 2020-09-29 06:42 | NUR ---
Patient in room MED 312. I have received report from SHAHRZAD and had the opportunity to ask questions and assume patient care.
[2020-09-29 07:28] LABS: ANISOCYTOSIS 1+; PLATELET ESTIMATE DECREASED; TOTAL CELLS COUNTED 100
[2020-09-29 07:29] LABS: ACANTHOCYTES FEW; ELLIPTOCYTES FEW; SCHISTOCYTES FEW
[2020-09-29] MEDS: allopurinol 300 MG tablet PO SCH (08:36)
[2020-09-29] MEDS: furosemide 20MG tablet PO SCH ×2 (08:36→21:57)
[2020-09-29] MEDS: pantoprazole 40mg Tablet.DR PO SCH (08:37)
[2020-09-29] MEDS: aspirin 81mg tablet.DR PO SCH (08:37)
[2020-09-29] MEDS: metoprolol succinate 25mg (24-HOUR) SR. Tablet PO SCH (08:37)
[2020-09-29] MEDS: guaiFENesin/DM 10ml UD oral syrup PO PRN ×2 (11:02→16:37)
--- NOTE | 2020-09-29 17:10 | NUR ---
Reed [id number] Re: Mirza Benz Patient having persistent coughing. Can we order Lindaon faby?
--- NOTE | 2020-09-29 18:15 | NUR ---
Problems reprioritized. Patient report given, questions answered & plan of care reviewed with VIKI.
--- NOTE | 2020-09-29 18:36 | NUR ---
Patient in room MED 314. I have received report from Reed JUNIOR and had the opportunity to ask questions and assume patient care. Addendum: 09/29/20 at 1837 by Nimisha Singh RN Amended: Links added.
--- NOTE | 2020-09-29 20:00 | NUR ---
Pt. is unable to assist with standing nor sitting up for orthostatics at this time. Pt. continue drifting back to sleep while we attempted to sit pt. up on the side of bed. Addendum: 09/30/20 at 0135 by Nimisha Singh RN Amended: Links added.
--- NOTE | 2020-09-29 21:00 | NUR ---
On assessment, pt, had a low grade temp of 100 degrees F, uncovered pt. due to multiple blanket covering. Reassessed temp at 0000 and 97.6 revealed 97.6. No other symptoms noted at this time. Addendum: 09/30/20 at 0709 by Nimisha Singh RN Amended: Links added.
[2020-09-29] MEDS: cefTAZidime inj. 1 GM in normal saline 100ml IV soln 100 ML IV SCH (21:59)
--- NOTE | 2020-09-29 22:16 | NUR ---
Pt. is A7 O x 3 at this time but drifts back to sleep while answering questions. Pt. denies feeling unusual. c/o urge to void; voided. Will continue monitoring. Addendum: 09/29/20 at 2225 by Nimisha Singh RN Amended: Links added.
[2020-09-29] MEDS: benzonatate 100mg capsule PO PRN (23:24)
--- NOTE | 2020-09-30 01:43 | NUR ---
Pt. with continuos coughing fits; administered prn cough medication as ordered. Addendum: 09/30/20 at 0144 by Nimisha Singh RN Amended: Links added.
[2020-09-30] MEDS: guaiFENesin/DM 10ml UD oral syrup PO PRN ×2 (01:49→21:45)
--- NOTE | 2020-09-30 03:41 | NUR ---
See previous note at 2100. Addendum: 09/30/20 at 0342 by Nimisha Singh RN Amended: Links added.
[2020-09-30 06:33] LABS: ALBUMIN 2.9 G/DL (3.4-5.0); ANION GAP 7 (8-16); BLOOD UREA NITROGEN 60 MG/DL (7-18); BUN/CREATININE RATIO 31.4 (5.4-32.0); CALCIUM 8.5 MG/DL (8.5-10.1); CHLORIDE 97 MMOL/L (99-107); CREATININE 1.91 MG/DL (0.60-1.10); GLUCOSE 99 MG/DL (70-104); POTASSIUM 5.3 MMOL/L (3.5-5.1); SODIUM 131 MMOL/L (135-145); eGFR 35 ML/MIN
[2020-09-30 06:44] LABS: BASOPHILS # (AUTO) 0.1 X10'3 (0-0.2); HEMOGLOBIN 7.1 g/dl (14.0-17.9); LYMPHOCYTES # (AUTO) 0.4 X10'3 (1.1-4.8); MONOCYTES % (AUTO) 0.6 % (2-12); WHITE BLOOD COUNT 1.6 X10'3 (4.5-11.0)
[2020-09-30 06:46] LABS: BASOPHILS % (AUTO) 4.6 % (0-1); LYMPHOCYTES % (AUTO) 26.6 % (21-51); MEAN CORPUSCULAR HEMOGLOBIN 31.4 PG (27.0-31.0); MEAN CORPUSCULAR HGB CONC 35.4 g/dL (33.0-36.5); MEAN CORPUSCULAR VOLUME 88.8 FL (78-98); MEAN PLATELET VOLUME 8.6 FL (7.4-10.4); NEUTROPHILS # (AUTO) 1.1 X10'3 (1.8-7.7); NEUTROPHILS % (AUTO) 65.2 % (42-75); RED BLOOD COUNT 2.25 X10'6 (4.70-6.10); RED CELL DISTRIBUTION WIDTH 17.1 % (11.5-14.5)
--- NOTE | 2020-09-30 06:51 | NUR ---
Problems reprioritized. Patient report given, questions answered & plan of care reviewed with Dereje JUNIOR . Addendum: 09/30/20 at 0652 by Nimisha Singh RN Amended: Links added.
[2020-09-30 06:57] LABS: PLATELET COUNT 24 X10'3 (140-440)
--- NOTE | 2020-09-30 07:04 | NUR ---
notified primary care rn of critical values received by phone from lab;HCT=20.0,HGB=7.1,PLT=24, ,notified VERNON Reyez
--- NOTE | 2020-09-30 07:20 | NUR ---
PAGER ID: [phone] MESSAGE: SHANNAN ACCChelita [id number] Re:314 GENESIS KNOTT PATIENT HAS CRITICAL Plt:24 AND Hct:20.0 WITH Hgb 7.1. THANKS SHANNAN
[2020-09-30 07:31] VITALS: BP 140/56
[2020-09-30] MEDS: allopurinol 300 MG tablet PO SCH (08:07)
[2020-09-30] MEDS: pantoprazole 40mg Tablet.DR PO SCH (08:08)
[2020-09-30] MEDS: furosemide 20MG tablet PO SCH (08:08)
[2020-09-30] MEDS: metoprolol succinate 25mg (24-HOUR) SR. Tablet PO SCH (08:08)
[2020-09-30] MEDS: cefTAZidime inj. 1 GM in normal saline 100ml IV soln 100 ML IV SCH ×2 (08:09→20:38)
[2020-09-30] MEDS: HYDROcodone/acetaminophen 10/325mg tab PO PRN ×2 (08:11→20:46)
--- NOTE | 2020-09-30 08:14 | NUR ---
Relieving primary RN Dereje. Administered Fulton 10 for pain, bar code wouldn't scan on Fulton. Administration of medication witnessed by charge entry clerkVERNON Paez RN.
[2020-09-30 10:11] LABS: NUCLEATED RED BLOOD CELLS 1 /100WBC (0-0); TOTAL CELLS COUNTED 100
[2020-09-30 10:14] LABS: ANISOCYTOSIS 1+; PLATELET ESTIMATE DECREASED
[2020-09-30 10:15] LABS: ELLIPTOCYTES FEW; SCHISTOCYTES 1+
[2020-09-30 11:00] VITALS: BP_SYST 106; BP_SYST 109; BP_SYST 86; BP_DIAS 33; BP_DIAS 46; BP_DIAS 50
[2020-09-30 11:35] VITALS: BP 107/49
[2020-09-30 14:00] VITALS: BP 107/47
--- NOTE | 2020-09-30 18:30 | NUR ---
Patient in room MED 314. I have received report from SHANNAN and had the opportunity to ask questions and assume patient care.
--- NOTE | 2020-09-30 18:31 | NUR ---
Problems reprioritized. Patient report given, questions answered & plan of care reviewed with Melissa JUNIOR.
[2020-09-30 19:30] VITALS: BP_SYST 121; BP_SYST 129; BP_DIAS 54; BP_DIAS 55
[2020-09-30 22:00] VITALS: BP 118/43
[2020-10-01 02:00] VITALS: BP 139/58
[2020-10-01 04:58] LABS: HEMOGLOBIN 7.7 g/dl (14.0-17.9)
[2020-10-01 05:00] LABS: HEMATOCRIT 22.7 % (42.0-52.0); MEAN CORPUSCULAR HEMOGLOBIN 30.4 PG (27.0-31.0); MEAN CORPUSCULAR HGB CONC 33.8 g/dL (33.0-36.5); MEAN CORPUSCULAR VOLUME 89.9 FL (78-98); MEAN PLATELET VOLUME 10.1 FL (7.4-10.4); RED BLOOD COUNT 2.53 X10'6 (4.70-6.10); RED CELL DISTRIBUTION WIDTH 17.5 % (11.5-14.5); WHITE BLOOD COUNT 1.9 X10'3 (4.5-11.0)
[2020-10-01 05:09] LABS: ALANINE AMINOTRANSFERASE 877 U/L (12-78); ALBUMIN 2.8 G/DL (3.4-5.0); ALKALINE PHOSPHATASE 80 IU/L (46-116); ANION GAP 8 (8-16); ASPARTATE AMINO TRANSFERASE 604 U/L (10-37); BILIRUBIN,TOTAL 5.8 MG/DL (0.1-1.0); BLOOD UREA NITROGEN 60 MG/DL (7-18); BUN/CREATININE RATIO 35.9 (5.4-32.0); CALCIUM 8.5 MG/DL (8.5-10.1); CHLORIDE 97 MMOL/L (99-107); CREATININE 1.67 MG/DL (0.60-1.10); GLUCOSE 132 MG/DL (70-104); POTASSIUM 4.6 MMOL/L (3.5-5.1); SODIUM 132 MMOL/L (135-145); TOTAL CARBON DIOXIDE 26.8 MMOL/L (24-32); eGFR 40 ML/MIN
[2020-10-01 05:11] LABS: ALBUMIN/GLOBULIN RATIO 0.7 (1.1-1.5); TOTAL PROTEIN 6.6 G/DL (6.4-8.2)
[2020-10-01 06:03] LABS: PLATELET COUNT 42 X10'3 (140-440)
--- NOTE | 2020-10-01 06:31 | NUR ---
Problems reprioritized. Patient report given, questions answered & plan of care reviewed with TYLER.
--- NOTE | 2020-10-01 06:45 | NUR ---
CRITICAL LAB (PLT 42) REPORTED TO PRIMARY RN.
[2020-10-01] MEDS: cefTAZidime inj. 1 GM in normal saline 100ml IV soln 100 ML IV SCH ×2 (07:06→20:17)
[2020-10-01] MEDS: pantoprazole 40mg Tablet.DR PO SCH (07:06)
[2020-10-01] MEDS: metoprolol succinate 25mg (24-HOUR) SR. Tablet PO SCH (07:06)
[2020-10-01] MEDS: allopurinol 300 MG tablet PO SCH (07:06)
[2020-10-01 07:40] VITALS: BP 139/58
[2020-10-01] MEDS ORDERED: sincalide inj 1.9 MCG in normal saline 50ml IV soln 50 ML IV PRN (07:45)
[2020-10-01] MEDS ORDERED: furosemide 20MG tablet PO SCH (08:00)
[2020-10-01 08:39] LABS: NUCLEATED RED BLOOD CELLS 2 /100WBC (0-0); TOTAL CELLS COUNTED 100
[2020-10-01 08:40] LABS: ANISOCYTOSIS 1+; PLATELET ESTIMATE DECREASED
[2020-10-01 08:41] LABS: ELLIPTOCYTES 1+; MICROCYTOSIS 1+; SCHISTOCYTES 1+
[2020-10-01 10:22] VITALS: BP 111/41
--- NOTE | 2020-10-01 11:25 | NUR ---
picked up for HIDA scan
[2020-10-01] MEDS ORDERED: NORMAL SALINE IV PRN (12:25)
[2020-10-01] MEDS ORDERED: SINCALIDE IV PRN (12:25)
[2020-10-01 14:15] VITALS: BP 103/43
--- NOTE | 2020-10-01 14:17 | NUR ---
Initial: Pt presented to ER with weakness and inability to take POs. Hx of myelodysplastic syndrome and new onset of liver disease. Pt has been severely nauseated, poor appetite, and unable to take in nourishments despite phenergan and zofran at home, per H&P. Pt consuming less than 25% PO, not meeting nutrient needs. MICAH [employer] regarding appetite stimulant, if appropriate. RN reports no appetite and pt declined shake/ONS. Last BM 09/27, recommend routine bowel care given history. Will continue to monitor for nutrient needs. Recs: 1) Continue neutropenic diet; encourage PO 2) Routine bowel care; last BM 09/27 3) Scaled wt per Rx 4) Recommend appetite stimulant if MD agreeable Addendum: 10/01/20 at [address] Amended: Links added. Addendum: 10/01/20 at [address] MICAH Naylor
--- NOTE | 2020-10-01 15:52 | NUR ---
Problems reprioritized. Patient report given, questions answered & plan of care reviewed with VERNON Dowd.
--- NOTE | 2020-10-01 16:30 | NUR ---
Assumed pt care from Silva JUNIOR. No changes noted since initial assessment. Addendum: 10/01/20 at 1836 by Noemí Tenorio RN Error Nurse name was natalee
--- NOTE | 2020-10-01 18:35 | NUR ---
Problems reprioritized. Patient report given, questions answered & plan of care reviewed with Clifford JUNIOR.
--- NOTE | 2020-10-01 18:45 | NUR ---
Patient in room MED 314. I have received report from Maikol, and had the opportunity to ask questions and assume patient care.
[2020-10-01 20:00] VITALS: BP 118/46
[2020-10-01] MEDS: HYDROcodone/acetaminophen 10/325mg tab PO PRN (21:40)
[2020-10-01 22:00] VITALS: BP 126/48
--- NOTE | 2020-10-01 22:17 | NUR ---
Patient refused the ortho static vitals. Pain medications given to the patient.
[2020-10-02 02:00] VITALS: BP 104/42
[2020-10-02 06:00] VITALS: BP 114/36
[2020-10-02 06:04] LABS: HEMOGLOBIN 7.3 g/dl (14.0-17.9); MEAN CORPUSCULAR VOLUME 89.7 FL (78-98); WHITE BLOOD COUNT 1.6 X10'3 (4.5-11.0)
[2020-10-02 06:07] LABS: MEAN CORPUSCULAR HEMOGLOBIN 30.7 PG (27.0-31.0); MEAN CORPUSCULAR HGB CONC 34.2 g/dL (33.0-36.5); MEAN PLATELET VOLUME 9.2 FL (7.4-10.4); PLATELET COUNT 68 X10'3 (140-440); RED BLOOD COUNT 2.38 X10'6 (4.70-6.10); RED CELL DISTRIBUTION WIDTH 17.4 % (11.5-14.5)
--- NOTE | 2020-10-02 06:19 | NUR ---
Critical lab values Hgb 7.3, Hct 21.4 reported to primary RN at this time.
[2020-10-02 06:22] LABS: ALANINE AMINOTRANSFERASE 594 U/L (12-78); ALBUMIN 2.5 G/DL (3.4-5.0); ALKALINE PHOSPHATASE 76 IU/L (46-116); ANION GAP 7 (8-16); ASPARTATE AMINO TRANSFERASE 300 U/L (10-37); BILIRUBIN,TOTAL 4.4 MG/DL (0.1-1.0); BLOOD UREA NITROGEN 53 MG/DL (7-18); BUN/CREATININE RATIO 37.3 (5.4-32.0); CALCIUM 8.4 MG/DL (8.5-10.1); CHLORIDE 100 MMOL/L (99-107); CREATININE 1.42 MG/DL (0.60-1.10); GLUCOSE 108 MG/DL (70-104); POTASSIUM 4.3 MMOL/L (3.5-5.1); SODIUM 134 MMOL/L (135-145); TOTAL CARBON DIOXIDE 27.1 MMOL/L (24-32); eGFR 49 ML/MIN
--- NOTE | 2020-10-02 06:23 | NUR ---
Patient in room MED 314. I have received report from VERNON LYONS and had the opportunity to ask questions and assume patient care.
--- NOTE | 2020-10-02 06:24 | NUR ---
Problems reprioritized. Patient report given to Elzbieta, questions answered & plan of care reviewed with
[2020-10-02 06:27] LABS: ALBUMIN/GLOBULIN RATIO 0.7 (1.1-1.5); TOTAL PROTEIN 6.1 G/DL (6.4-8.2)
[2020-10-02 07:18] LABS: TOTAL CELLS COUNTED 100
[2020-10-02 07:19] LABS: ANISOCYTOSIS 2+; MICROCYTOSIS 1+; PLATELET ESTIMATE DECREASED; SCHISTOCYTES 2+
[2020-10-02 07:20] LABS: ELLIPTOCYTES 1+; LARGE PLATELETS FEW
[2020-10-02 07:21] LABS: POLYCHROMASIA 1+; ROULEAUX 1+
[2020-10-02] MEDS: metoprolol succinate 25mg (24-HOUR) SR. Tablet PO SCH (08:00)
[2020-10-02 10:00] VITALS: BP 112/44
[2020-10-02] MEDS: allopurinol 300 MG tablet PO SCH (10:01)
[2020-10-02] MEDS: pantoprazole 40mg Tablet.DR PO SCH (10:01)
[2020-10-02] MEDS: cefTAZidime inj. 1 GM in normal saline 100ml IV soln 100 ML IV SCH ×2 (10:01→20:22)
[2020-10-02] MEDS: normal saline 1000ml 1,000 ML IV SCH ×2 (10:17→20:31)
[2020-10-02 10:26] LABS: HEMATOCRIT 21.4 % (42.0-52.0)
[2020-10-02] MEDS: HYDROcodone/acetaminophen 10/325mg tab PO PRN (13:42)
[2020-10-02 13:47] LABS: HEMOGLOBIN 7.2 g/dl (14.0-17.9); MEAN CORPUSCULAR HEMOGLOBIN 30.4 PG (27.0-31.0); MEAN CORPUSCULAR HGB CONC 33.1 g/dL (33.0-36.5); MEAN CORPUSCULAR VOLUME 91.7 FL (78-98); MEAN PLATELET VOLUME 9.1 FL (7.4-10.4); PLATELET COUNT 87 X10'3 (140-440); RED BLOOD COUNT 2.39 X10'6 (4.70-6.10); RED CELL DISTRIBUTION WIDTH 17.2 % (11.5-14.5); WHITE BLOOD COUNT 1.9 X10'3 (4.5-11.0)
[2020-10-02 14:00] VITALS: BP 114/42
[2020-10-02 14:05] LABS: HEMATOCRIT 21.9 % (42.0-52.0)
[2020-10-02 18:00] VITALS: BP 124/46
--- NOTE | 2020-10-02 18:20 | NUR ---
Patient in room MED 314. I have received report from Sneha JUNIOR and had the opportunity to ask questions and assume patient care.
--- NOTE | 2020-10-02 18:54 | NUR ---
Problems reprioritized. Patient report given, questions answered & plan of care reviewed with VERNON LYONS.
--- NOTE | 2020-10-02 19:08 | NUR ---
PATIENT STATED THAT WHEN PATIENT IS REFUSING TO WORK WITH PT TO CALL HER SO SHE CAN ENCOURAGE HIM TO WORK WITH PT
[2020-10-02 22:00] VITALS: BP 143/41
[2020-10-03] VITALS (9 sets, daily range): BP systolic 100–136; BP diastolic 30–64
[2020-10-03] MEDS: normal saline 1000ml 1,000 ML IV SCH ×2 (04:20→14:20)
--- NOTE | 2020-10-03 05:56 | NUR ---
patient refused AM blood draw. Magda, the charge nurse is aware of the issue.
--- NOTE | 2020-10-03 06:38 | NUR ---
Problems reprioritized. Patient report given Sandee, questions answered & plan of care reviewed with .
--- NOTE | 2020-10-03 07:05 | NUR ---
Patient in room MED 314. I have received report from VERNON Horton and had the opportunity to ask questions and assume patient care.
--- NOTE | 2020-10-03 08:30 | NUR ---
Patient refusing lab draw, physical assessment and meds at this time. Patient stating "you will not do anything until I'm done with breakfast." Patient having breakfast at this time. Addendum: 10/03/20 at 0935 by Lidya Mulligan RN Patient also refused morning vitals.
--- NOTE | 2020-10-03 09:35 | NUR ---
Patient agreeable to having lab drawn. light rail signal technician was in at bedside but unable to obtain sample. Per charge Marcy, patient asked for patient luis cath to be accessed and lab draw from the luis cath. Dr Cornejo had agreed but PICC RN, Margarita does not recommend and suggested a extended PIV. She will notify MD and will place extended PIV if Dr. Cornejo agreeable. Will continue to monitor.
[2020-10-03] MEDS: cefTAZidime inj. 1 GM in normal saline 100ml IV soln 100 ML IV SCH ×2 (09:52→20:27)
[2020-10-03] MEDS: allopurinol 300 MG tablet PO SCH (09:53)
[2020-10-03] MEDS: metoprolol succinate 25mg (24-HOUR) SR. Tablet PO SCH (09:53)
[2020-10-03] MEDS: pantoprazole 40mg Tablet.DR PO SCH (09:53)
--- NOTE | 2020-10-03 10:46 | NUR ---
PICC RN, Margarita will not be starting an extended PIV for patient. She states she spoke to patient's spouse regarding this and they have both agreed not recommended for patient.
[2020-10-03 10:48] LABS: MEAN CORPUSCULAR VOLUME 91.2 FL (78-98); MEAN PLATELET VOLUME 8.5 FL (7.4-10.4); RED CELL DISTRIBUTION WIDTH 17.5 % (11.5-14.5); WHITE BLOOD COUNT 1.6 X10'3 (4.5-11.0)
--- NOTE | 2020-10-03 10:48 | NUR ---
Patient has been refusing to turn and allow full physical assessment. Patient agreeable to being repositioned or pulled up in bed for comfort but refuses to be turned. Addendum: 10/03/20 at 1050 by Lidya Mulligan RN Educated patient importance of turning and repositioning to maintain skin integrity and prevent wounds but patient continues to refuse.
[2020-10-03 10:50] LABS: MEAN CORPUSCULAR HEMOGLOBIN 30.6 PG (27.0-31.0); MEAN CORPUSCULAR HGB CONC 33.5 g/dL (33.0-36.5); PLATELET COUNT 123 X10'3 (140-440); RED BLOOD COUNT 2.24 X10'6 (4.70-6.10)
[2020-10-03 10:56] LABS: HEMATOCRIT 20.4 % (42.0-52.0); HEMOGLOBIN 6.9 g/dl (14.0-17.9)
[2020-10-03 11:03] LABS: ALANINE AMINOTRANSFERASE 432 U/L (12-78); ALBUMIN 2.3 G/DL (3.4-5.0); ALBUMIN/GLOBULIN RATIO 0.6 (1.1-1.5); ALKALINE PHOSPHATASE 71 IU/L (46-116); ANION GAP 3 (8-16); ASPARTATE AMINO TRANSFERASE 169 U/L (10-37); BILIRUBIN,TOTAL 3.4 MG/DL (0.1-1.0); BLOOD UREA NITROGEN 47 MG/DL (7-18); BUN/CREATININE RATIO 33.1 (5.4-32.0); CHLORIDE 102 MMOL/L (99-107); CREATININE 1.42 MG/DL (0.60-1.10); GLUCOSE 172 MG/DL (70-104); POTASSIUM 4.5 MMOL/L (3.5-5.1); SODIUM 133 MMOL/L (135-145); TOTAL CARBON DIOXIDE 28.1 MMOL/L (24-32); TOTAL PROTEIN 6.1 G/DL (6.4-8.2); eGFR 49 ML/MIN
[2020-10-03 11:27] LABS: TOTAL CELLS COUNTED 100
[2020-10-03 11:29] LABS: ANISOCYTOSIS 1+; PLATELET ESTIMATE DECREASED
[2020-10-03 11:30] LABS: POLYCHROMASIA FEW
[2020-10-03 11:31] LABS: ELLIPTOCYTES FEW; SCHISTOCYTES FEW; TEAR DROP CELLS FEW
--- NOTE | 2020-10-03 12:05 | NUR ---
NOTIFED PAGER ID: [phone] MESSAGE: [phone] GENESIS LOPEZ. BLOOD BANK NEEDS CLARIFICATION ON BLOOD ORDER. PATIENT HAS BEEN GETTING IRRATED BLOOD. BUT YOUR ORDER SAYS NO IRRADIATION. THANK YOU VERNON SIMON EXT [phone]
[2020-10-03 12:56] LABS: AFP,SERUM, TUMOR MARKER <0.9 ng/mL (0.0-8.3); HBSAG SCREEN Negative (Negative); HEP A AB, IGM Negative (Negative); HEP B CORE AB, TOT Negative (Negative); HEPATITIS C ANTIBODY <0.1 s/co ratio (0.0-0.9)
[2020-10-03 15:36] LABS: LIPASE 169 U/L (73-393)
--- NOTE | 2020-10-03 18:51 | NUR ---
Problems reprioritized. Patient report given, questions answered & plan of care reviewed with VERNON Dowd.
[2020-10-03 19:53] LABS: ANTINUCLEAR ANTIBODIES Negative (Negative)
[2020-10-04] MEDS: normal saline 1000ml 1,000 ML IV SCH ×3 (00:20→20:20)
[2020-10-04 02:00] VITALS: BP 108/27
[2020-10-04 06:00] VITALS: BP 115/43
--- NOTE | 2020-10-04 06:20 | NUR ---
Patient in room MED 314. I have received report from bhavesh morales and had the opportunity to ask questions and assume patient care.
--- NOTE | 2020-10-04 06:25 | NUR ---
Problems reprioritized. Patient report given, questions answered & plan of care reviewed with Becki JUNIOR.
[2020-10-04] MEDS: pantoprazole 40mg Tablet.DR PO SCH (08:30)
[2020-10-04] MEDS: cefTAZidime inj. 1 GM in normal saline 100ml IV soln 100 ML IV SCH (08:30)
[2020-10-04] MEDS: metoprolol succinate 25mg (24-HOUR) SR. Tablet PO SCH (08:31)
[2020-10-04] MEDS: allopurinol 300 MG tablet PO SCH (08:31)
[2020-10-04] MEDS: guaiFENesin/DM 10ml UD oral syrup PO PRN (08:43)
[2020-10-04] MEDS: benzonatate 100mg capsule PO PRN (08:44)
[2020-10-04] MEDS: albuterol 2.5 MG/3 ML nebule NEB PRN (08:56)
[2020-10-04 09:06] LABS: HEMATOCRIT 22.8 % (42.0-52.0); HEMOGLOBIN 7.6 g/dl (14.0-17.9); MEAN CORPUSCULAR HGB CONC 33.5 g/dL (33.0-36.5); RED CELL DISTRIBUTION WIDTH 17.8 % (11.5-14.5); WHITE BLOOD COUNT 1.4 X10'3 (4.5-11.0)
[2020-10-04 09:08] LABS: MEAN CORPUSCULAR VOLUME 92.6 FL (78-98); MEAN PLATELET VOLUME 8.6 FL (7.4-10.4); PLATELET COUNT 163 X10'3 (140-440); RED BLOOD COUNT 2.46 X10'6 (4.70-6.10)
[2020-10-04 09:09] LABS: ALANINE AMINOTRANSFERASE 282 U/L (12-78); ALBUMIN 2.2 G/DL (3.4-5.0); ALBUMIN/GLOBULIN RATIO 0.6 (1.1-1.5); ALKALINE PHOSPHATASE 66 IU/L (46-116); ANION GAP 4 (8-16); ASPARTATE AMINO TRANSFERASE 69 U/L (10-37); BILIRUBIN,TOTAL 3.1 MG/DL (0.1-1.0); BLOOD UREA NITROGEN 37 MG/DL (7-18); BUN/CREATININE RATIO 33.9 (5.4-32.0); CALCIUM 8.1 MG/DL (8.5-10.1); CHLORIDE 103 MMOL/L (99-107); CREATININE 1.09 MG/DL (0.60-1.10); GLUCOSE 108 MG/DL (70-104); POTASSIUM 4.5 MMOL/L (3.5-5.1); SODIUM 136 MMOL/L (135-145); TOTAL PROTEIN 6.1 G/DL (6.4-8.2); eGFR 66 ML/MIN
[2020-10-04 10:00] VITALS: BP 147/33
[2020-10-04 10:50] LABS: ANISOCYTOSIS 1+; NUCLEATED RED BLOOD CELLS 2 /100WBC (0-0); PLATELET ESTIMATE NORMAL; TOTAL CELLS COUNTED 100
[2020-10-04 10:52] LABS: BURR CELLS FEW; ELLIPTOCYTES FEW; POIKILOCYTOSIS 1+; POLYCHROMASIA FEW; TEAR DROP CELLS FEW
[2020-10-04 10:53] LABS: MICROCYTOSIS FEW; SCHISTOCYTES FEW; SPHEROCYTES FEW
[2020-10-04 14:00] VITALS: BP 128/52
--- NOTE | 2020-10-04 15:32 | NUR ---
Reassessment: Pt continues with poor PO intake not meeting nutrition needs, 0-25% four days. Pt has been severely nauseated, poor appetite, and unable to take in nourishments despite Phenergan and zofran at home, per H&P. RN reports no appetite and pt declined shake/ONS. Last BM 10/01, not receiving bowel care, Prn milk of magnesia available. Attempted bedside visit with patient, observed meal tray untouched. Pt fell asleep during visit after RD offered yogurt, cottage cheese, smoothie, etc. Hx of myelodysplastic syndrome and new onset of liver disease. Will attempt another visit tomorrow. Recs: 1) Continue neutropenic diet; encourage PO 2) Routine bowel care; last BM 10/01 3) Scaled wt per Rx 4) may benefit from appetite stimulant Addendum: 10/04/20 at [address] Amended: Links added.
--- NOTE | 2020-10-04 18:00 | NUR ---
Dr. andre at bedside ,discussed details of venous duplex shared by hue panda stated will talk with dr. cartagena
--- NOTE | 2020-10-04 18:22 | NUR ---
DR. MEDINA PAGED: PAGER ID: [phone] MESSAGE: [phone]: JESSICA - + CLOTS IN ARMS :( NURSE SHANTE [id number]
--- NOTE | 2020-10-04 18:45 | NUR ---
Problems reprioritized. Patient report given, questions answered & plan of care reviewed with VERNON FUCHS.
[2020-10-04] MEDS ORDERED: heparin 10,000 units/1 ML INJ IV PRN (18:50)
[2020-10-04] MEDS ORDERED: heparin 10,000 units/1 ML INJ IV ONE (18:50)
[2020-10-04 19:00] VITALS: BP 121/40
[2020-10-04] MEDS: heparin 25,000 UNIT/250ml bag 250 ML IV SCH (20:16)
[2020-10-04] MEDS: pantoprazole 40MG/NS 100ML BAG 100 ML IV SCH (22:38)
[2020-10-04 23:00] VITALS: BP 113/44
[2020-10-04] MEDS: HYDROcodone/acetaminophen 10/325mg tab PO PRN (23:20)
[2020-10-05] VITALS (8 sets, daily range): BP systolic 84–134; BP diastolic 40–66
[2020-10-05] MEDS: pantoprazole 40MG/NS 100ML BAG 100 ML IV SCH ×4 (02:36→16:00)
[2020-10-05 02:38] LABS: MEAN CORPUSCULAR HEMOGLOBIN 32.2 PG (27.0-31.0); MEAN CORPUSCULAR HGB CONC 34.1 g/dL (33.0-36.5); MEAN CORPUSCULAR VOLUME 94.4 FL (78-98); MEAN PLATELET VOLUME 8.8 FL (7.4-10.4); PLATELET COUNT 187 X10'3 (140-440); RED BLOOD COUNT 2.11 X10'6 (4.70-6.10); RED CELL DISTRIBUTION WIDTH 17.3 % (11.5-14.5); WHITE BLOOD COUNT 1.2 X10'3 (4.5-11.0)
[2020-10-05 02:41] LABS: HEMOGLOBIN 6.8 g/dl (14.0-17.9)
[2020-10-05 02:46] LABS: ALANINE AMINOTRANSFERASE 182 U/L (12-78); ALBUMIN 1.9 G/DL (3.4-5.0); ALBUMIN/GLOBULIN RATIO 0.5 (1.1-1.5); ALKALINE PHOSPHATASE 61 IU/L (46-116); ANION GAP 5 (8-16); ASPARTATE AMINO TRANSFERASE 34 U/L (10-37); BILIRUBIN,TOTAL 2.4 MG/DL (0.1-1.0); BLOOD UREA NITROGEN 37 MG/DL (7-18); BUN/CREATININE RATIO 31.4 (5.4-32.0); CALCIUM 7.7 MG/DL (8.5-10.1); CHLORIDE 105 MMOL/L (99-107); CREATININE 1.18 MG/DL (0.60-1.10); GLUCOSE 131 MG/DL (70-104); POTASSIUM 4.9 MMOL/L (3.5-5.1); SODIUM 136 MMOL/L (135-145); TOTAL CARBON DIOXIDE 26.3 MMOL/L (24-32); TOTAL PROTEIN 5.7 G/DL (6.4-8.2); eGFR 60 ML/MIN
[2020-10-05 03:05] LABS: ANISOCYTOSIS 1+; BURR CELLS 1+; ELLIPTOCYTES FEW; PLATELET ESTIMATE NORMAL; POIKILOCYTOSIS 1+; POLYCHROMASIA FEW; SCHISTOCYTES 1+; SPHEROCYTES 1+; TEAR DROP CELLS FEW; TOTAL CELLS COUNTED 100
[2020-10-05 05:36] LABS: CERULOPLASMIN 38.9 mg/dL (16.0-31.0)
--- NOTE | 2020-10-05 06:14 | NUR ---
Patient in room MED 314. I have received report from VERNON Melissa and had the opportunity to ask questions and assume patient care.
[2020-10-05] MEDS ORDERED: normal saline 1000ml 1,000 ML IV ONE (08:15)
--- NOTE | 2020-10-05 08:26 | NUR ---
DR. MEDINA PAGED: PAGER ID: [phone] MESSAGE: [phone]: JESSICA - HIGH SCHOOL COORDINATOR SAYS NO TO BOTH SCANS, MUST BE [address] HEAD/NECK NO CONTRAST AND CTA CHEST? SHANTE 7476
[2020-10-05] MEDS: allopurinol 300 MG tablet PO SCH (09:21)
[2020-10-05] MEDS: metoprolol succinate 25mg (24-HOUR) SR. Tablet PO SCH (09:21)
[2020-10-05] MEDS: heparin 25,000 UNIT/250ml bag 250 ML IV SCH (10:16)
[2020-10-05] MEDS: normal saline 1000ml 1,000 ML IV SCH ×2 (13:37→16:20)
--- NOTE | 2020-10-05 15:17 | NUR ---
Reassessment: Pt continues with poor PO intake not meeting nutrition needs, 0-25% five days. Pt's confusion may be contributing to poor PO intake. Seen by ST for BSS this morning, per ST pt very confused and recommends pureed diet with nectar thick liquids d/t difficulty chewing, swallowing. Lunch meal with pureed foods patient had great improvement in PO intake along with having a family member help feed him, pt ate 100% of pureed meat, 50% of nectar thick milk, and 50% starch. Last BM 10/01, not receiving bowel care, Prn milk of magnesia available, d/w RN. Hx of myelodysplastic syndrome and new onset of liver disease. Recs: 1) Continue neutropenic, pureed diet with nectar thick liquids texture per FUNERAL ATTENDANT 2) Routine bowel care; last BM 10/01 3) Scaled wt per Rx 4) may benefit from appetite stimulant Addendum: 10/05/20 at [address] Amended: Links added.
--- NOTE | 2020-10-05 18:14 | NUR ---
Problems reprioritized. Patient report given, questions answered & plan of care reviewed with VERNON Arthur.
[2020-10-05] MEDS ORDERED: morphine oral 20mg/ml (conc. morphine) 1ml oral syringe PO PRN (18:20)
[2020-10-05] MEDS ORDERED: hyoscyamine 0.125mg TAB.SUBL SL PRN (18:20)
[2020-10-05] MEDS ORDERED: LORazepam 0.5 MG tablet PO PRN (19:00)
[2020-10-05] MEDS ORDERED: LORazepam 2 mg/ml vial IV PRN (19:00)
[2020-10-05] MEDS: guaiFENesin/DM 10ml UD oral syrup PO PRN (23:52)
[2020-10-05] MEDS: morphine 10mg/0.5ml (conc. morphine) oral syringe PO PRN (23:53)
[2020-10-06] MEDS: morphine 10mg/0.5ml (conc. morphine) oral syringe PO PRN ×2 (02:38→05:56)
[2020-10-06 06:00] VITALS: BP 126/39
--- NOTE | 2020-10-06 06:08 | NUR ---
Patient in room MED 314. I have received report from VERNON Arthur and had the opportunity to ask questions and assume patient care.
[2020-10-06] MEDS: allopurinol 300 MG tablet PO SCH (08:00)
--- NOTE | 2020-10-06 11:57 | NUR ---
DR. ANG PAGED: PAGER ID: [phone] MESSAGE: [phone]: JESSICA - DNR/CC, JUST :( NURSE Tennille [phone]
--- NOTE | 2020-10-06 12:15 | NUR ---
RN IS TO DOCUMENT YES TO ALL APPLICABLE AREAS Pronouncement of : 1. Time Physician Notified:[id number] 2. Date of : 10/06/2020 3. Time of : 1155 4. DNR/Withdraw life support documented: Y 5. Monitor strip has been placed on chart: Y 6. Assessment process is of one-minute duration and includes following criteria: a) Patient is unresponsive to all stimuli: Y b) Pupils fixed and non-reactive: Y c) Auscultation of precordium reveals absence of heart tones: Y d) Auscultation of lungs reveals absence of breath sounds: Y e) Absence of blood pressure / all vital signs: Y f) QRS complexes are not present on monitor / EKG strip: Y g) Pacer spikes without capture: Y 4. Comments:
--- NOTE | 2020-10-06 12:24 | NUR ---
[facility]ed [facility]: Ref number [id number]. Spoke with Jerrod. Not a candidate for donation.
== END 2020-10-06 14:03 | disposition expired | DRG 811 ==
LOC: ER 12:46 → ED HOLD 14:30 → MED 3N 20:07
PROVIDERS: ADMIT Internal Medicine; ATTEND Internal Medicine
PROC: 30233N1 Transfusion of Nonautologous Red Blood Cells into Peripheral Vein, Percutaneous Approach (ICD-10-PCS; 2020-09-26)
PROC: 30233R1 Transfusion of Nonautologous Platelets into Peripheral Vein, Percutaneous Approach (ICD-10-PCS; 2020-09-26)
PROC: 30233K1 Transfusion of Nonautologous Frozen Plasma into Peripheral Vein, Percutaneous Approach (ICD-10-PCS; principal; 2020-09-27)
PROC: CF1C1ZZ Planar Nuclear Medicine Imaging of Hepatobiliary System, All using Technetium 99m (Tc-99m) (ICD-10-PCS; 2020-10-01)
PROC: B3251ZZ Computerized Tomography (CT Scan) of Bilateral Common Carotid Arteries using Low Osmolar Contrast (ICD-10-PCS; 2020-10-05)
PROC: B32G1ZZ Computerized Tomography (CT Scan) of Bilateral Vertebral Arteries using Low Osmolar Contrast (ICD-10-PCS; 2020-10-05)
PROC: B3281ZZ Computerized Tomography (CT Scan) of Bilateral Internal Carotid Arteries using Low Osmolar Contrast (ICD-10-PCS; 2020-10-05)
DX: D46.9 Myelodysplastic syndrome, unspecified (principal); G93.41 Metabolic encephalopathy; D61.818 Other pancytopenia; I74.8 Embolism and thrombosis of other arteries; I82.622 Acute embolism and thrombosis of deep veins of left upper extremity; N17.9 Acute kidney failure, unspecified; R17 Unspecified jaundice; I50.32 Chronic diastolic (congestive) heart failure; I13.0 Hypertensive heart and chronic kidney disease with heart failure and stage 1 through stage 4 chronic kidney disease, or unspecified chronic kidney disease; D69.59 Other secondary thrombocytopenia; E78.5 Hyperlipidemia, unspecified; E86.0 Dehydration; Z51.5 Encounter for palliative care; Z66 Do not resuscitate; I25.10 Atherosclerotic heart disease of native coronary artery without angina pectoris; I48.91 Unspecified atrial fibrillation; I65.21 Occlusion and stenosis of right carotid artery; G62.9 Polyneuropathy, unspecified; G89.29 Other chronic pain; D63.8 Anemia in other chronic diseases classified elsewhere; N18.9 Chronic kidney disease, unspecified; I49.5 Sick sinus syndrome; M54.9 Dorsalgia, unspecified; R74.01 Elevation of levels of liver transaminase levels; R74.8 Abnormal levels of other serum enzymes; J44.9 Chronic obstructive pulmonary disease, unspecified; Z86.73 Personal history of transient ischemic attack (TIA), and cerebral infarction without residual deficits; Z87.442 Personal history of urinary calculi; Z87.891 Personal history of nicotine dependence; Z95.0 Presence of cardiac pacemaker; Z95.1 Presence of aortocoronary bypass graft; Z79.899 Other long term (current) drug therapy
CPT/HCPCS: 36415; 36430; 70496; 70498; 71045; 74176; 76700; 76937; 78227; 80048; 80053; 80074; 81003; 82103; 82248; 82272; 82390; 82728; 83516; 83540; 83550; 83605; 83615; 83690; 83880; 84145; 84443; 84484; 85007; 85025; 85027; 85045; 85730; 86038; 86644; 86704; 86880; 86885; 86900; 86901; 86920; 86945; 87040; 87081; 92508; 92616; 93005; 93970; 94640; 94760; 96374; 97110; 97112; 97116; 97163; 97530; 99285; A9537; C9113; G0378; J0713; J1644; J2405; J7030; P9016; P9035; P9059